=== PATIENT | male | born 1960 | race Caucasian/White ===

== ENCOUNTER 2022-09-19 23:58 | Emergency (ER) | payer MEDICAID ==
[~2022-09-19] VITALS: Ht 165.1 cm; Wt 101.9 kg
[2022-09-20 00:10] VITALS: BP 144/72
[2022-09-20 00:40] LABS: BASOPHILS % 0.6 % (0.0-2.0); EOSINOPHILS % 2.2 % (0.0-5.0); HEMATOCRIT. 49.9 % (42.0-52.0); HEMOGLOBIN. 17.3 g/dL (14.0-18.0); LYMPHOCYTES % 27.2 % (20.0-50.0); MEAN CORPUSCULAR HEMOGLOBIN 33.5 pg (28.0-32.0); MEAN CORPUSCULAR VOLUME 96.8 fL (80.0-94.0); MEAN PLATELET VOLUME 7.8 fl (7.4-10.4); PLATELET 202 x1000/uL (130-400); RED BLOOD CELL COUNT 5.16 mill/uL (4.7-6.1); RED CELL DISTRIBUTION WIDTH 13.1 % (11.6-14.6)
[2022-09-20 00:47] LABS: CHLORIDE 100 mEq/L (98-107)
[2022-09-20 00:58] LABS: ETHANOL BLOOD < 10 mg/dL
[2022-09-20 02:32] LABS: CLARITY URINE CLEAR (CLEAR); COLOR URINE YELLOW (YELLOW); KETONES URINE TRACE (NEGATIVE); LEUKOCYTE ESTERASE URINE NEGATIVE (NEGATIVE); NITRITE URINE NEGATIVE (NEGATIVE); OCCULT BLOOD URINE NEGATIVE (NEGATIVE); PROTEIN URINE 1+ (NEGATIVE); UROBILINOGEN URINE 0.2 E.U./dL (0.2-1.0)
== END 2022-09-20 02:20 | disposition home or self-care (01) ==
LOC: ER 23:58
DX: R07.89 Other chest pain (principal); E11.65 Type 2 diabetes mellitus with hyperglycemia; R91.8 Other nonspecific abnormal finding of lung field; E66.9 Obesity, unspecified; Z68.37 Body mass index [BMI] 37.0-37.9, adult
CPT/HCPCS: 36415; 71045; 80053; 80320; 81003; 83880; 84484; 85025; 99284; G0480